=== PATIENT | female | born 1985 | race African-American/Black ===

== ENCOUNTER 2017-06-29 09:42 | Emergency (ER) | payer MEDICAID ==
[~2017-06-29] VITALS: Ht 162.6 cm; Wt 75.2 kg
[2017-06-29 09:47] VITALS: BP 138/70; PULSE 91; RESP 18; TEMP 98.4; O2SAT 98
--- NOTE | 2017-06-29 10:09 | PD ---
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 This patient complains of irregular vaginal bleeding since November when she got her first Depo-Provera injection. She still passes brownish clots. She denies pus discharge or fever or pelvic pain. She had a vaginal 7 months ago. Symptom severity is mild to moderate. No alleviating factors. No exacerbating factors. She has not taken any further Depo-Provera injections. She recently moved here and has no follow-up physician. PFSH Past Medical History ?: Not LMP: ? Social History Alcohol Use: No Tobacco Use: No Substance Use: No Allergies-Medications (Allergen,Severity, Reaction): Coded Allergies: peanut (Verified Allergy, Severe, Anaphylaxis, 06/29/17) coconut (Verified Allergy, Unknown, 06/29/17) weed pollen (Verified Allergy, Unknown, 06/29/17) Reported Meds & Prescriptions Reported Meds & Active Scripts Active No Active Prescriptions or Reported Medications Review of Systems General / Constitutional: No: Fever Eyes: No: Visual changes HENT: No: Headaches Cardiovascular: No: Chest Pain or Discomfort Respiratory: No: Shortness of Breath Gastrointestinal: No: Abdominal Pain Genitourinary: Positive: Vaginal Bleeding, No: Dysuria Musculoskeletal: No: Pain Skin: No Rash Neurologic: No: Weakness Psychiatric: No: Depression Endocrine: No: Polydipsia Hematologic/Lymphatic: No: Easy Bruising Physical Exam Narrative GENERAL: Well-nourished, well-developed patient in no apparent distress. SKIN: Focused skin assessment reveals no rash and nodules. Skin is Warm and dry. HEAD: Atraumatic. Normocephalic. EYES: Pupils equal and round. No scleral icterus. No injection or drainage. ENT: No nasal bleeding or discharge. Mucous membranes pink and moist. NECK: Trachea midline. No JVD. CARDIOVASCULAR: Regular rate and rhythm. No murmur appreciated. RESPIRATORY: No accessory muscle use. Clear to auscultation. Breath sounds equal bilaterally. GASTROINTESTINAL: Abdomen soft, non-tender, nondistended. Hepatic and splenic margins not palpable. MUSCULOSKELETAL: No obvious deformities. No clubbing. No cyanosis. No edema. NEUROLOGICAL: Awake and alert. No obvious cranial nerve deficits. Motor grossly within normal limits. Normal speech. PSYCHIATRIC: Appropriate mood and affect; insight and judgment normal. Pelvic: Speculum exam reveals a scant amount of old clotted blood in the vault. No active hemorrhage. No lesions or discharge seen. Data Data Last Documented VS Vital Signs Date Time Temp Pulse Resp B/P (MAP) Pulse Ox O2 Delivery O2 Flow Rate FiO2 06/29/17 09:47 98.4 91 18 138/70 (92) 98 Orders Orders Complete Blood Count With Diff (06/29/17 10:04) Ed Urine Pregnancytest Poc (06/29/17 10:04) Labs Laboratory Tests Test 06/29/17 10:15 White Blood Count 6.8 TH/MM3 Red Blood Count 5.05 MIL/MM3 Hemoglobin 12.9 GM/DL Hematocrit 40.0 % Mean Corpuscular Volume 79.2 FL Mean Corpuscular Hemoglobin 25.5 PG Mean Corpuscular Hemoglobin Concent 32.2 % Red Cell Distribution Width 15.4 % Platelet Count 228 TH/MM3 Mean Platelet Volume 9.1 FL Neutrophils (%) (Auto) 58.7 % Lymphocytes (%) (Auto) 32.2 % Monocytes (%) (Auto) 6.5 % Eosinophils (%) (Auto) 2.3 % Basophils (%) (Auto) 0.3 % Neutrophils # (Auto) 4.0 TH/MM3 Lymphocytes # (Auto) 2.2 TH/MM3 Monocytes # (Auto) 0.4 TH/MM3 Eosinophils # (Auto) 0.2 TH/MM3 Basophils # (Auto) 0.0 TH/MM3 CBC Comment DIFF FINAL Differential Comment MDM Medical Decision Making Medical Screen Exam Complete: Yes Emergency Medical Condition: Yes Medical Record Reviewed: Yes Differential Diagnosis Anemia, ectopic , miscarriage, dysfunctional uterine bleeding Narrative Course I have reviewed the patient's electronic medical record. Urine is negative CBC is normal Patient medically stable for outpatient [employer] follow-up. She has a scant amount of old clotted blood in the vault but no active hemorrhage She has stopped the Depo-Provera Diagnosis Primary Impression: Vaginal bleeding Additional Instructions: Follow-up with [employer]ULT[employer] Med/Other Pt SpecificInfo: Other Scripts No Active Prescriptions or Reported Meds Disposition: DISCHARGE HOME Condition: Stable Parker Todd MD June 29, 2017 10:09
[2017-06-29 10:27] LABS: BASOPHIL % 0.3 % (0.0-2.0); EOSINOPHIL # 0.2 TH/MM3 (0-0.4); EOSINOPHIL % 2.3 % (0.0-4.0); HEMOGLOBIN 12.9 GM/DL (11.6-15.3); LYMPH % 32.2 % (9.0-44.0); LYMPHOCYTE # 2.2 TH/MM3 (1.0-4.8); MEAN CELL VOLUME 79.2 FL (80.0-100.0); MEAN CORPUSCULAR HEMOGLOBIN 25.5 PG (27.0-34.0); MEAN CORPUSCULAR HGB CONC 32.2 % (32.0-36.0); MEAN PLATELET VOLUME 9.1 FL (7.0-11.0); MONO % 6.5 % (0.0-8.0); MONOCYTE # 0.4 TH/MM3 (0-0.9); NEUT % 58.7 % (16.0-70.0); PLATELET COUNT 228 TH/MM3 (150-450); RED BLOOD COUNT 5.05 MIL/MM3 (4.00-5.30); RED CELL DISTRIBUTION WIDTH 15.4 % (11.6-17.2); WHITE BLOOD COUNT 6.8 TH/MM3 (4.0-11.0)
== END 2017-06-29 11:12 | disposition home or self-care (01) ==
LOC: NEPD 09:42
DX: N93.9 Abnormal uterine and vaginal bleeding, unspecified (principal)
CPT/HCPCS: 84703; 85025; 99283

== ENCOUNTER 2017-07-29 09:31 | Emergency (ER) | payer MEDICAID ==
[~2017-07-29] VITALS: Ht 162.6 cm; Wt 75.0 kg
[2017-07-29 09:34] VITALS: BP 116/72; PULSE 80; RESP 18; TEMP 98.2; O2SAT 99
--- NOTE | 2017-07-29 09:40 | PD ---
HPI Chief Complaint: Cardiac Complaint Time Seen by Provider: 09:37 Travel History International Travel<30 days: No Contact w/Intl Traveler<30days: No Traveled to known affect area: No History of Present Illness HPI Patient comes in complaining of palpitations while she was at [employer] waiting in line. Patient denies having any new medications or using any new products or having any caffeinated drinks this morning. Patient denies any associated alleviating or aggravating factors. Patient denies any actual chest pain, fever , cough, runny nose, sore throat, nausea, vomiting, diarrhea, abdominal pain, back pain, or flank pain. Patient only has allergies to food such as coconut, peanut and wheat pollen Patient denies any significant past medical or surgical history LMP July 21, 2017 [facility] Past Medical History Diminished Hearing: No ?: Not LMP: 07/21/17 : 8 Para: 6 Miscarriage: 2 Social History Alcohol Use: No Tobacco Use: No Substance Use: No Allergies-Medications (Allergen,Severity, Reaction): Coded Allergies: peanut (Verified Allergy, Severe, Anaphylaxis, 06/29/17) coconut (Verified Allergy, Unknown, 06/29/17) weed pollen (Verified Allergy, Unknown, 06/29/17) Reported Meds & Prescriptions Reported Meds & Active Scripts Active No Active Prescriptions or Reported Medications Review of Systems General / Constitutional: No: Fever Eyes: No: Visual changes HENT: No: Headaches Cardiovascular: Positive: Palpitations Respiratory: No: Shortness of Breath Gastrointestinal: No: Abdominal Pain Genitourinary: No: Dysuria Musculoskeletal: No: Pain Skin: No Rash Neurologic: No: Weakness Psychiatric: No: Depression Endocrine: No: Polydipsia Hematologic/Lymphatic: No: Easy Bruising Physical Exam Narrative GENERAL: SKIN: Warm and dry. HEAD: Atraumatic. Normocephalic. EYES: Pupils equal and round. No scleral icterus. No injection or drainage. ENT: No nasal bleeding or discharge. Mucous membranes pink and moist. NECK: Trachea midline. No JVD. CARDIOVASCULAR: Regular rate and rhythm. RESPIRATORY: No accessory muscle use. Clear to auscultation. Breath sounds equal bilaterally. GASTROINTESTINAL: Abdomen soft, non-tender, nondistended. MUSCULOSKELETAL: Extremities without clubbing, cyanosis, or edema. No obvious deformities. NEUROLOGICAL: Awake and alert. No obvious cranial nerve deficits. Motor grossly within normal limits. Five out of 5 muscle strength in the arms and legs. Normal speech. PSYCHIATRIC: Appropriate mood and affect; insight and judgment normal. Data Data Last Documented VS Vital Signs Date Time Temp Pulse Resp B/P (MAP) Pulse Ox O2 Delivery O2 Flow Rate FiO2 07/29/17 09:34 98.2 80 18 116/72 (87) 99 Orders Orders Electrocardiogram (07/29/17 09:48) Complete Blood Count With Diff (07/29/17 09:48) Comprehensive Metabolic Panel (07/29/17 09:48) Thyroid Stimulating Hormone (07/29/17 09:48) Ed Urine Pregnancytest Poc (07/29/17 09:48) Drug Screen, Random Urine (07/29/17 09:48) Labs Laboratory Tests Test 07/29/17 10:03 07/29/17 10:08 White Blood Count 5.1 TH/MM3 Red Blood Count 4.72 MIL/MM3 Hemoglobin 12.0 GM/DL Hematocrit 37.3 % Mean Corpuscular Volume 79.0 FL Mean Corpuscular Hemoglobin 25.3 PG Mean Corpuscular Hemoglobin Concent 32.1 % Red Cell Distribution Width 15.3 % Platelet Count 221 TH/MM3 Mean Platelet Volume 9.1 FL Neutrophils (%) (Auto) 52.5 % Lymphocytes (%) (Auto) 39.0 % Monocytes (%) (Auto) 6.2 % Eosinophils (%) (Auto) 1.9 % Basophils (%) (Auto) 0.4 % Neutrophils # (Auto) 2.7 TH/MM3 Lymphocytes # (Auto) 2.0 TH/MM3 Monocytes # (Auto) 0.3 TH/MM3 Eosinophils # (Auto) 0.1 TH/MM3 Basophils # (Auto) 0.0 TH/MM3 CBC Comment DIFF FINAL Differential Comment Blood Urea Nitrogen 11 MG/DL Creatinine 0.67 MG/DL Random Glucose 88 MG/DL Total Protein 7.9 GM/DL Albumin 3.9 GM/DL Calcium Level 9.1 MG/DL Alkaline Phosphatase 67 U/L Aspartate Amino Transf (AST/SGOT) 18 U/L Alanine Aminotransferase (ALT/SGPT) 22 U/L Total Bilirubin 0.5 MG/DL Sodium Level 139 MEQ/L Potassium Level 3.8 MEQ/L Chloride Level 104 MEQ/L Carbon Dioxide Level 24.8 MEQ/L Anion Gap 10 MEQ/L Estimat Glomerular Filtration Rate 123 ML/MIN Thyroid Stimulating Hormone 3rd Gen 1.870 uIU/ML Urine Opiates Screen NEG Urine Barbiturates Screen NEG Urine Amphetamines Screen NEG Urine Benzodiazepines Screen NEG Urine Cocaine Screen NEG Urine Cannabinoids Screen NEG MDM Medical Decision Making Medical Screen Exam Complete: Yes Emergency Medical Condition: Yes Medical Record Reviewed: Yes Interpretation(s) Pulse ox: Excellent Pleth wave, oximetry readings on room air between 97 and 100 which is within normal limits and without any evidence of hypoxemia EKG shows normal sinus rhythm, 68 bpm, normal intervals, no evidence of any ST elevation WI pattern, Differential Diagnosis Anemia versus dehydration versus arrhythmia Narrative Course Tox screen negative for opiates barbiturates and amphetamines benzodiazepines cocaine and marijuana CBC is negative for leukocytosis, anemia, normal platelet count, no left shift Electrolytes are within normal limits, Normal kidney liver functions. TSH screen is within normal limits Most likely the patient is suffering from insomnia related palpitations, and anxiety however is expected that the patient once she is able to rest resume her normal self and activities. Diagnosis Primary Impression: Palpitations resolved Additional Impression: Insomnia Patient Instructions: General Instructions, Heart Palpitations (ED), Insomnia ( ED) Scripts Zolpidem (Ambien) 5 Mg Tab 5 MG PO HS Y for INSOMNIA for 3 Days, #3 TAB 0 Refills Prov: Aly Cisneros MD 07/29/17 Disposition: 01 DISCHARGE HOME Condition: Stable Aly Cisneros MD Jul 29, 2017 09:39
[2017-07-29 10:39] LABS: AUTOMATED NEUTROPHIL # 2.7 TH/MM3 (1.8-7.7); BASOPHIL % 0.4 % (0.0-2.0); EOSINOPHIL # 0.1 TH/MM3 (0-0.4); EOSINOPHIL % 1.9 % (0.0-4.0); HEMATOCRIT 37.3 % (35.0-46.0); MEAN CORPUSCULAR HEMOGLOBIN 25.3 PG (27.0-34.0); MEAN CORPUSCULAR HGB CONC 32.1 % (32.0-36.0); MEAN PLATELET VOLUME 9.1 FL (7.0-11.0); MONO % 6.2 % (0.0-8.0); MONOCYTE # 0.3 TH/MM3 (0-0.9); NEUT % 52.5 % (16.0-70.0); PLATELET COUNT 221 TH/MM3 (150-450); RED BLOOD COUNT 4.72 MIL/MM3 (4.00-5.30); RED CELL DISTRIBUTION WIDTH 15.3 % (11.6-17.2); WHITE BLOOD COUNT 5.1 TH/MM3 (4.0-11.0)
[2017-07-29 10:54] LABS: ALBUMIN 3.9 GM/DL (3.4-5.0); AST (GOT) 18 U/L (15-37); BICARBONATE 24.8 MEQ/L (21.0-32.0); BLOOD UREA NITROGEN 11 MG/DL (7-18); CALCIUM 9.1 MG/DL (8.5-10.1); CHLORIDE 104 MEQ/L (98-107); CREATININE 0.67 MG/DL (0.50-1.00); GLOMERULAR FILTRATION RATE 123 ML/MIN (>89); GLUCOSE,RANDOM 88 MG/DL (74-106); SODIUM (NA) 139 MEQ/L (136-145)
[2017-07-29 11:05] LABS: ALKALINE PHOSPHATASE 67 U/L (45-117); ALT (GPT) 22 U/L (10-53); TOTAL BILIRUBIN ADULT 0.5 MG/DL (0.2-1.0); TOTAL PROTEIN 7.9 GM/DL (6.4-8.2)
[2017-07-29] MEDS ORDERED: AMBI5TAB PO (11:19)
[2017-07-29 11:33] VITALS: BP 119/76; PULSE 68; RESP 16; O2SAT 98
--- NOTE | 2017-07-29 14:42 | EKG ---
Date Performed: 07/29/2017 Time Performed: 09:55:30 PTAGE: 32 years EKG: Sinus rhythm NORMAL ECG NO PREVIOUS TRACING DOCTOR: Renard Soto Interpretating Date/Time 07/29/2017 14:41:05
== END 2017-07-29 12:16 | disposition home or self-care (01) ==
LOC: NEPC 09:31
DX: R00.2 Palpitations (principal); G47.00 Insomnia, unspecified; Z91.010 Allergy to peanuts; Z91.018 Allergy to other foods
CPT/HCPCS: 80053; 80307; 84443; 84703; 85025; 93005